=== PATIENT | male | born 1940 | race Caucasian/White ===

== ENCOUNTER 2021-07-01 14:53 | Inpatient (IN) | payer MEDICARE ==
[~2021-07-01] VITALS: Ht 172.7 cm; Wt 92.1 kg
[2021-07-01] MEDS ORDERED: Z GUARD REMEDY PASTE 57 GM TUBE TOP PRN (20:00)
[2021-07-01 21:05] VITALS: BP 147/71
[2021-07-01] MEDS ORDERED: MULT-594 PO (22:03)
[2021-07-01] MEDS ORDERED: CITA40TA11 PO (22:03)
[2021-07-01] MEDS ORDERED: ASPI-869 PO (22:03)
[2021-07-01] MEDS ORDERED: AMIO200T5 PO (22:03)
[2021-07-01] MEDS ORDERED: CARV6.252 PO (22:03)
[2021-07-01] MEDS ORDERED: APIX5TAB PO (22:03)
[2021-07-01] MEDS ORDERED: ATOR80TA PO (22:03)
[2021-07-01] MEDS ORDERED: BISA10SU61 RC (22:04)
[2021-07-01] MEDS ORDERED: PANT40TA49 PO (22:04)
[2021-07-01] MEDS ORDERED: TRAZ-257 PO (22:04)
[2021-07-01] MEDS ORDERED: ACET-2154 PO (22:04)
[2021-07-01] MEDS ORDERED: FURO40TA5 PO (22:04)
[2021-07-01] MEDS ORDERED: SENN-261 PO (22:04)
[2021-07-01] MEDS ORDERED: SACU1TAB PO (22:04)
[2021-07-01] MEDS ORDERED: POLY119P2 PO (22:04)
[2021-07-01] MEDS ORDERED: FERR325T28 PO (22:04)
[2021-07-01] MEDS ORDERED: GABA-532 PO (22:04)
[2021-07-01] MEDS ORDERED: DOCU100C36 PO (22:04)
[2021-07-01] MEDS ORDERED: NITR-104 PO (22:04)
[2021-07-01] MEDS ORDERED: TAMS-3 PO (22:04)
--- NOTE | 2021-07-02 01:31 | NUR ---
Received a 81 yr old male admitted for Acute CVA from [facility]. Patient alert and oriented x4. Patient with expressive aphasia. Speech clear. Needs attended. VSS. Kept comfortable. Skin intact but with some rashes noted on bilateral upper extremities. Fall precautions maintained. Call guthrie within reach. Bed alarm on. Patient has a vanessa catheter draining yellow urine. Hx of HTN, Hyperlipidemia, CVA in the past, CABG, Recurrent UTI, urinary retention. Dr Wylie aware of patient's admission and meds to reconcile. Will monitor patient. Denies any pain nor any discomfort.
[2021-07-02 04:00] VITALS: BP 132/78
--- NOTE | 2021-07-02 06:46 | NUR ---
End of shift notes: Slept well most of the shift. VSS. Needs attended. Kept comfortable. Hathaway catheter draining yellow urine. I & O monitor. No complaints presented during shift.
--- NOTE | 2021-07-02 07:30 | NUR ---
Patient received in bed, alert and oriented, but confused and unable to verbalize needs at this time. Patient is able to follow directions, but expressive aphasia present. On RA with no SOB or difficulties breathing. No acute distress noted. Hathaway draining clear bee urine via gravity. Call light within easy reach. Fall precautions in place. Will continue to monitor.
[2021-07-02 07:32] VITALS: BP 161/70
--- NOTE | 2021-07-02 11:59 | NUR ---
TRISHA NOTE: TRISHA met with patient and Hafsa ([phone]) who expressed that patient has been suffering with depression and made statements of feelings hopeless and not able to live. Hafsa requested for a psychiatry consultation. TRISHA requested a psychiatry consultation from 3rd floor unit nurse. TRISHA also informed Jasmyne Robison and Francisco spring encaser. TRISHA also provided Hafsa with a list of medicare accepting psychiatrist ion their community for aftercare.
--- NOTE | 2021-07-02 12:02 | NUR ---
Social Work Note/PH9 Post Stroke Depression Screening: easement worker met with patient and conducted a PHQ-9 (Post Stroke Depression Screening) in which the patient score of a level of 14 for depression. Patient requires psych consult. TRISHA advised nursing on the third floor and Francisco ed case manager.
--- NOTE | 2021-07-02 12:03 | NUR ---
Social Work Stroke Resources: utility worker met with patient and provided stroke referrals such as: Stroke Family Warmline at (7-262-5-STROKE) and additional information on caring for a stroke survivor ( ). utility worker also educated patient on the signs of Stroke and to immediately call 911. utility worker provided education on the signs of stroke and provided educational packet with information: Dietary food, what stroke is, risks, emotional support, finding support, medical management, and effects of stroke.
[2021-07-02] MEDS ORDERED: MIRALAX 17 GM POWD.PACK PO PRN (13:30)
[2021-07-02] MEDS ORDERED: BISACODYL 10 MG SUPP.RECT RC PRN (13:30)
[2021-07-02] MEDS: DOCUSATE SODIUM 100 MG CAPSULE PO SCH ×2 (14:37→20:31)
[2021-07-02] MEDS: FUROSEMIDE 40 MG TABLET PO SCH (14:38)
[2021-07-02] MEDS: CARVEDILOL 6.25 MG TABLET PO SCH ×2 (14:38→20:31)
[2021-07-02] MEDS: MULTIVITAMINS,THERAPEUTIC TABLET PO SCH (14:38)
[2021-07-02] MEDS: ASPIRIN EC 81 MG TABLET.DR PO SCH (14:38)
[2021-07-02] MEDS: AMIODARONE HCL 200 MG TABLET PO SCH (14:39)
[2021-07-02] MEDS: FERROUS SULFATE 325 MG TABEC PO SCH ×2 (14:39→20:32)
[2021-07-02] MEDS: NITROFURANTOIN/NITROFURAN MAC 100 MG CAPSULE PO SCH ×2 (14:41→20:31)
[2021-07-02] MEDS: TAMSULOSIN HCL 0.4 MG CAP.SR.24H PO SCH ×2 (14:42→20:32)
[2021-07-02] MEDS: GABAPENTIN 300 MG CAPSULE PO SCH ×2 (14:42→18:00)
[2021-07-02] MEDS: APIXABAN 5 MG TABLET PO SCH ×2 (14:43→20:33)
[2021-07-02] MEDS: CITALOPRAM 20 MG TABLET PO SCH (20:30)
[2021-07-02] MEDS: ATORVASTATIN 40 MG TABLET PO SCH (20:31)
[2021-07-02 20:32] VITALS: BP 164/75
[2021-07-02] MEDS: PANTOPRAZOLE SODIUM 40 MG TABLET.DR PO SCH (20:32)
[2021-07-02] MEDS ORDERED: TRAZODONE 100 MG TABLET PO PRN (21:00)
[2021-07-02] MEDS ORDERED: SENNOSIDES 1 TABLET PO PRN (21:00)
--- NOTE | 2021-07-02 23:12 | NUR ---
Received pt sleeping comfortably. Aroused easily to verbal stimuli. Alert and oriented x3, with expressive aphasia. No acute distress noted. Denies pain/ discomfort. Due meds given as ordered, given 2 at a time, tolerated well. No aspiration noted. Aspiration precaution observed. Hathaway catheter draining well with bee colored urine. Safety measures maintained. Bed alarm on. Call light within reach. Will continue to monitor.
--- NOTE | 2021-07-03 00:52 | NUR ---
Vital signs at midnight, BP 163/72 HR 53. No SOB, CP, or dizziness. Paged Dr. Mora x2 around 1210 through exchange, no response. Exchanged called back to follow up at 1254, still no response. Awaiting call back. Pt sleeping comfortably at this time. Will continue to monitor.
--- NOTE | 2021-07-03 01:23 | NUR ---
Dr. Reid called back and stated he will put in order.
[2021-07-03 04:25] VITALS: BP 144/64
[2021-07-03 07:05] LABS: HEMATOCRIT 32.4 % (36.7-47.1); MEAN CORPUSCULAR HEMOGLOBIN 30.1 uug (23.8-33.4); PLATELET COUNT (AUTO) 328 K/uL (152-348)
[2021-07-03 07:25] LABS: BILIRUBIN,TOTAL 0.8 mg/dL (0.2-1.0); MAGNESIUM 1.8 mg/dL (1.8-2.4); PHOSPHOROUS 3.2 mg/dL (2.5-4.9); TOTAL PROTEIN, SERUM 7.9 g/dL (6.4-8.2)
[2021-07-03 08:00] VITALS: BP 149/65
[2021-07-03] MEDS ORDERED: POTASSIUM CHLORIDE 20 MEQ TAB.PRT.SR PO ONE (08:15)
[2021-07-03] MEDS: ASPIRIN EC 81 MG TABLET.DR PO SCH (08:29)
[2021-07-03] MEDS: NITROFURANTOIN/NITROFURAN MAC 100 MG CAPSULE PO SCH ×2 (08:29→20:41)
[2021-07-03] MEDS: DOCUSATE SODIUM 100 MG CAPSULE PO SCH ×2 (08:30→16:12)
[2021-07-03] MEDS: FERROUS SULFATE 325 MG TABEC PO SCH ×2 (08:30→16:12)
[2021-07-03] MEDS: TAMSULOSIN HCL 0.4 MG CAP.SR.24H PO SCH ×2 (08:30→20:41)
[2021-07-03] MEDS: FUROSEMIDE 40 MG TABLET PO SCH (08:30)
[2021-07-03] MEDS: GABAPENTIN 300 MG CAPSULE PO SCH ×3 (08:30→16:12)
[2021-07-03] MEDS: MULTIVITAMINS,THERAPEUTIC TABLET PO SCH (08:30)
--- NOTE | 2021-07-03 08:30 | NUR ---
Received patient in bed, alert and oriented x 3, cooperative upon assessment. Patient attempted to get out of bed and reminded him not to do that without any assistance and patient verbalized understanding. Bed alarm is functioning well. All needs met promptly. All due meds given per MD order. Patient BP is 140/60 in room air saturating at 95%
[2021-07-03] MEDS: CARVEDILOL 6.25 MG TABLET PO SCH ×2 (08:33→18:10)
[2021-07-03] MEDS: AMIODARONE HCL 200 MG TABLET PO SCH (08:33)
[2021-07-03] MEDS: APIXABAN 5 MG TABLET PO SCH ×2 (08:34→16:11)
[2021-07-03] MEDS ORDERED: ENTRESTO PO SCH (09:00)
[2021-07-03] MEDS ORDERED: [UNRECOGNIZED DRUG - OTHER] PO SCH (09:00)
--- NOTE | 2021-07-03 15:27 | NUR ---
BP 173/83 notified Giovanny Short NP and awaiting for response
[2021-07-03] MEDS ORDERED: hydrALAZINE HCL 20 MG/1 ML VIAL IV PRN (15:45)
[2021-07-03 15:48] VITALS: BP 173/83
[2021-07-03 20:10] VITALS: BP 121/57
[2021-07-03] MEDS: ATORVASTATIN 40 MG TABLET PO SCH (20:41)
[2021-07-03] MEDS: PANTOPRAZOLE SODIUM 40 MG TABLET.DR PO SCH (20:41)
[2021-07-03] MEDS: CITALOPRAM 20 MG TABLET PO SCH (20:41)
--- NOTE | 2021-07-03 21:30 | NUR ---
Received pt resting in bed. AAO x3. No acute distress noted. Denies pain/ discomfort. Due meds given as ordered. Tolerated well. No aspiration noted. At 2100, pt noted accidentally dislodged his vanessa catheter. Bleeding and clots noted coming out from penis. Notified Giovanny Short POULTRY KILLER with order for CBC and BMP, hold Eliquis for tomorrow depending on lab result, and to reinsert vanessa catheter. Will carry out order. Safety measures maintained. Call light within reach. Will continue to monitor.
--- NOTE | 2021-07-03 22:00 | NUR ---
Tolerated vanessa catheter insertion with hematuria still noted. No resistance noted on insertion. Continue to monitor.
[2021-07-04 04:10] VITALS: BP 128/87
[2021-07-04 06:58] LABS: HEMATOCRIT 31.1 % (36.7-47.1); MEAN CORPUSCULAR HEMOGLOBIN 30.1 uug (23.8-33.4); MEAN CORPUSCULAR VOLUME 90.1 fL (73.0-96.2); PLATELET COUNT (AUTO) 300 K/uL (152-348)
[2021-07-04 08:00] VITALS: BP 157/68
[2021-07-04 08:02] LABS: CARBON DIOXIDE 24 mmol/L (21-32); CHLORIDE 104 mmol/L (98-107); CREATININE 1.6 mg/dL (0.6-1.3); GLUCOSE 100 mg/dL (74-106); POTASSIUM 3.2 mmol/L (3.5-5.1); UREA NITROGEN, BLOOD 20 mg/dL (7-18)
[2021-07-04] MEDS: GABAPENTIN 300 MG CAPSULE PO SCH ×3 (08:16→17:15)
[2021-07-04] MEDS: ASPIRIN EC 81 MG TABLET.DR PO SCH (08:16)
[2021-07-04] MEDS: MULTIVITAMINS,THERAPEUTIC TABLET PO SCH (08:17)
[2021-07-04] MEDS: NITROFURANTOIN/NITROFURAN MAC 100 MG CAPSULE PO SCH ×2 (08:17→21:07)
[2021-07-04] MEDS: CARVEDILOL 6.25 MG TABLET PO SCH ×2 (08:17→17:15)
[2021-07-04] MEDS: FUROSEMIDE 40 MG TABLET PO SCH (08:17)
[2021-07-04] MEDS: TAMSULOSIN HCL 0.4 MG CAP.SR.24H PO SCH ×2 (08:17→21:08)
[2021-07-04] MEDS: FERROUS SULFATE 325 MG TABEC PO SCH ×2 (08:17→17:15)
[2021-07-04] MEDS: AMIODARONE HCL 200 MG TABLET PO SCH (08:18)
[2021-07-04] MEDS: DOCUSATE SODIUM 100 MG CAPSULE PO SCH ×2 (08:20→17:14)
[2021-07-04] MEDS ORDERED: POTASSIUM CHLORIDE 20 MEQ TAB.PRT.SR PO ONE (09:00)
[2021-07-04] MEDS: APIXABAN 5 MG TABLET PO SCH ×2 (09:09→17:14)
--- NOTE | 2021-07-04 09:15 | NUR ---
inform Giovanny Short regarding patient still have a little bit of blood on his vanessa catheter. Per Giovanny Short , ok to give eliquis 5mg.
[2021-07-04 16:00] VITALS: BP 161/70
--- NOTE | 2021-07-04 16:34 | NUR ---
INDIVIDUALIZED PLAN OF CARE
[2021-07-04 18:57] LABS: *BILIRUBIN,URIN NEGATIVE (NEGATIVE); *BLOOD, URINE 1+ (NEGATIVE); *COLOR,URINE YELLOW (YELLOW); *KETONES,URINE TRACE (NEGATIVE); *UROBILINOGEN,URINE 0.2 E.U./dl (NORMAL); LEUKOCYTE ESTERASE ,URINE NEGATIVE (NEGATIVE); NITRITE, URINE NEGATIVE (NEGATIVE); UGLUCOSE NEGATIVE (NEGATIVE)
[2021-07-04 19:04] LABS: *CREATININE,URINE 151.6 mg/dL (30-125)
[2021-07-04 19:07] LABS: *CLARITY,URINE SLIGHTLY HAZY (CLEAR); BACTERIA,URINE FEW /HPF (NONE SEEN); SQUAMOUS EPITHELIAL CELL,UR FEW /HPF (NONE SEEN)
[2021-07-04 19:08] LABS: CALCIUM OXALATE CRYSTALS,UR FEW /HPF (NONE SEEN)
[2021-07-04 20:14] VITALS: BP 104/59
[2021-07-04] MEDS: PANTOPRAZOLE SODIUM 40 MG TABLET.DR PO SCH (21:07)
[2021-07-04] MEDS: ATORVASTATIN 40 MG TABLET PO SCH (21:08)
[2021-07-04] MEDS: CITALOPRAM 20 MG TABLET PO SCH (21:08)
[2021-07-05 04:42] VITALS: BP 142/56
[2021-07-05 06:19] LABS: HEMATOCRIT 29.5 % (36.7-47.1); MEAN CORPUSCULAR HEMOGLOBIN 29.3 uug (23.8-33.4); MEAN CORPUSCULAR VOLUME 91.2 fL (73.0-96.2); PLATELET COUNT (AUTO) 273 K/uL (152-348)
--- NOTE | 2021-07-05 06:29 | NUR ---
Received pt on bed with no respiratory distress noted on initial rounds. Slept throughout the night, easily arousable for care. Pt still noted with pinkish colored urine on Hathaway bag. Denies pain and discomfort at this time. All due medications given and tolerated well. All needs anticipated and attended. Call light placed within reach. Frequent visual checks done. Will endorse for continuity of care.
[2021-07-05 06:53] LABS: BILIRUBIN,TOTAL 0.6 mg/dL (0.2-1.0); CREATININE 1.3 mg/dL (0.6-1.3); MAGNESIUM 1.9 mg/dL (1.8-2.4); PHOSPHOROUS 3.8 mg/dL (2.5-4.9); POTASSIUM 3.3 mmol/L (3.5-5.1); TOTAL PROTEIN, SERUM 7.3 g/dL (6.4-8.2)
[2021-07-05 07:32] VITALS: BP 147/71
[2021-07-05] MEDS ORDERED: POTASSIUM CHLORIDE 20 MEQ TAB.PRT.SR PO ONE (09:15)
[2021-07-05] MEDS: ASPIRIN EC 81 MG TABLET.DR PO SCH (09:48)
[2021-07-05] MEDS: DOCUSATE SODIUM 100 MG CAPSULE PO SCH ×2 (09:48→17:25)
[2021-07-05] MEDS: MULTIVITAMINS,THERAPEUTIC TABLET PO SCH (09:48)
[2021-07-05] MEDS: GABAPENTIN 300 MG CAPSULE PO SCH ×3 (09:48→17:25)
[2021-07-05] MEDS: NITROFURANTOIN/NITROFURAN MAC 100 MG CAPSULE PO SCH ×2 (09:48→20:14)
[2021-07-05] MEDS: TAMSULOSIN HCL 0.4 MG CAP.SR.24H PO SCH ×2 (09:49→20:14)
[2021-07-05] MEDS: FERROUS SULFATE 325 MG TABEC PO SCH ×2 (09:49→17:26)
[2021-07-05] MEDS: FUROSEMIDE 40 MG TABLET PO SCH (09:49)
[2021-07-05] MEDS: CARVEDILOL 6.25 MG TABLET PO SCH ×2 (09:50→17:27)
[2021-07-05] MEDS: APIXABAN 5 MG TABLET PO SCH ×2 (09:50→17:28)
[2021-07-05] MEDS: AMIODARONE HCL 200 MG TABLET PO SCH (09:51)
[2021-07-05 15:54] VITALS: BP 139/61
[2021-07-05] MEDS: GLUCERNA SHAKE 237 ML CAN PO SCH (17:27)
[2021-07-05] MEDS: ATORVASTATIN 40 MG TABLET PO SCH (20:14)
[2021-07-05] MEDS: PANTOPRAZOLE SODIUM 40 MG TABLET.DR PO SCH (20:14)
[2021-07-05] MEDS: CITALOPRAM 20 MG TABLET PO SCH (20:14)
[2021-07-05 20:15] VITALS: BP 135/55
[2021-07-05] MEDS: ACETAMINOPHEN 325 MG TABLET PO PRN (20:16)
--- NOTE | 2021-07-05 23:11 | NUR ---
Received pt sleeping comfortably. Aroused easily to verbal stimuli. Alert and oriented x3. No acute distress noted. Denies pain/ discomfort. Temp 99.6F, cooling measures and Tylenol given. Due meds given as ordered, given with apple sauce 1-2 tabs at a time, tolerated well. No aspiration noted. Aspiration precaution observed. Hathaway catheter in place, draining with bee colored urine. No hematuria, clots, or sediments noted at this time. Safety measures maintained. Call light within reach. Will continue to monitor.
[2021-07-06 04:25] VITALS: BP 131/62
[2021-07-06 08:03] VITALS: BP 164/67
[2021-07-06] MEDS: NITROFURANTOIN/NITROFURAN MAC 100 MG CAPSULE PO SCH ×2 (10:06→20:15)
[2021-07-06] MEDS: APIXABAN 5 MG TABLET PO SCH ×2 (10:07→17:23)
[2021-07-06] MEDS: CARVEDILOL 6.25 MG TABLET PO SCH ×2 (10:07→17:21)
[2021-07-06] MEDS: FUROSEMIDE 40 MG TABLET PO SCH (10:07)
[2021-07-06] MEDS: TAMSULOSIN HCL 0.4 MG CAP.SR.24H PO SCH ×2 (10:07→20:15)
[2021-07-06] MEDS: DOCUSATE SODIUM 100 MG CAPSULE PO SCH ×2 (10:07→17:22)
[2021-07-06] MEDS: MULTIVITAMINS,THERAPEUTIC TABLET PO SCH (10:07)
[2021-07-06] MEDS: AMIODARONE HCL 200 MG TABLET PO SCH (10:08)
[2021-07-06] MEDS: FERROUS SULFATE 325 MG TABEC PO SCH ×2 (10:08→17:21)
[2021-07-06] MEDS: ASPIRIN EC 81 MG TABLET.DR PO SCH (10:08)
[2021-07-06] MEDS: GABAPENTIN 300 MG CAPSULE PO SCH ×3 (10:08→17:22)
[2021-07-06] MEDS: GLUCERNA SHAKE 237 ML CAN PO SCH (10:09)
[2021-07-06 16:00] VITALS: BP 137/54
[2021-07-06 20:15] VITALS: BP 149/60
[2021-07-06] MEDS: ATORVASTATIN 40 MG TABLET PO SCH (20:15)
[2021-07-06] MEDS: PANTOPRAZOLE SODIUM 40 MG TABLET.DR PO SCH (20:15)
[2021-07-06] MEDS: CITALOPRAM 20 MG TABLET PO SCH (20:18)
--- NOTE | 2021-07-06 22:44 | NUR ---
Received pt on bed with no respiratory distress noted. Hathaway catheter secured with new StatLock. No hematuria noted on urine bag at this time. Denies pain and discomfort. All due medications given and tolerated well. All needs attended. Call light placed within reach. Will continue to monitor.
[2021-07-07 04:35] VITALS: BP 147/69
--- NOTE | 2021-07-07 05:46 | NUR ---
Pt slept throughout the night. On room air with no respiratory distress noted. FC remains patent and draining with yellowish urine. Denies pain and discomfort at this time. All needs attended. Call light placed within reach. Frequent visual checks done. Will endorse for continuity of care.
--- NOTE | 2021-07-07 07:15 | NUR ---
Received patient asleep in bed. On room air. No signs of acute distress. With Hathaway catheter draining clear, yellow urine. Bed alarm on. Call light within reach. Will continue to monitor.
[2021-07-07 08:06] VITALS: BP 154/77
[2021-07-07] MEDS: NITROFURANTOIN/NITROFURAN MAC 100 MG CAPSULE PO SCH ×2 (08:08→20:56)
[2021-07-07] MEDS: TAMSULOSIN HCL 0.4 MG CAP.SR.24H PO SCH ×2 (08:08→20:56)
[2021-07-07] MEDS: ASPIRIN EC 81 MG TABLET.DR PO SCH (08:08)
[2021-07-07] MEDS: DOCUSATE SODIUM 100 MG CAPSULE PO SCH ×2 (08:08→16:34)
[2021-07-07] MEDS: GABAPENTIN 300 MG CAPSULE PO SCH ×3 (08:08→16:34)
[2021-07-07] MEDS: FERROUS SULFATE 325 MG TABEC PO SCH ×2 (08:08→16:34)
[2021-07-07] MEDS: FUROSEMIDE 40 MG TABLET PO SCH (08:08)
[2021-07-07] MEDS: MULTIVITAMINS,THERAPEUTIC TABLET PO SCH (08:08)
[2021-07-07] MEDS: GLUCERNA SHAKE 237 ML CAN PO SCH (08:09)
[2021-07-07] MEDS: CARVEDILOL 6.25 MG TABLET PO SCH ×2 (08:10→16:45)
[2021-07-07] MEDS: AMIODARONE HCL 200 MG TABLET PO SCH (08:10)
[2021-07-07] MEDS: AMLODIPINE 5 MG TABLET PO SCH (08:11)
[2021-07-07] MEDS: APIXABAN 5 MG TABLET PO SCH ×2 (08:12→16:45)
--- NOTE | 2021-07-07 14:03 | NUR ---
INTERDISCIPLINARY TEAM CONFERENCE
[2021-07-07 15:41] VITALS: BP 127/61
--- NOTE | 2021-07-07 18:44 | NUR ---
Patient resting in bed. AOx3-4 with expressive aphasia. On room air. No signs of acute distress. Hathaway catheter draining yellow, clear urine. Compliant with medications and care. Call light within reach. Bed alarm on. Needs anticipated and met. Safety measures provided. Will endorse to incoming shift for continuity of care.
[2021-07-07 20:25] VITALS: BP 99/47
[2021-07-07] MEDS: PANTOPRAZOLE SODIUM 40 MG TABLET.DR PO SCH (20:56)
[2021-07-07] MEDS: ATORVASTATIN 40 MG TABLET PO SCH (20:56)
[2021-07-07] MEDS: CITALOPRAM 20 MG TABLET PO SCH (20:56)
[2021-07-08 04:38] VITALS: BP 123/63
--- NOTE | 2021-07-08 05:41 | NUR ---
Received pt on bed, on room air with no respiratory distress noted on initial rounds. Slept throughout the night, easily arousable for care. Hathaway catheter draining well with clear yellowish urine, no hematuria noted. Denies pain and discomfort. All due medications given and tolerated well. All needs attended. Call light placed within reach. Frequent visual checks done. Will endorse to next shift for continuity of care.
[2021-07-08 08:00] VITALS: BP 124/67
[2021-07-08] MEDS: FUROSEMIDE 40 MG TABLET PO SCH (09:00)
[2021-07-08] MEDS: AMLODIPINE 5 MG TABLET PO SCH (09:00)
[2021-07-08] MEDS: CARVEDILOL 6.25 MG TABLET PO SCH ×2 (09:00→17:11)
[2021-07-08] MEDS: MULTIVITAMINS,THERAPEUTIC TABLET PO SCH (09:17)
[2021-07-08] MEDS: GABAPENTIN 300 MG CAPSULE PO SCH ×3 (09:17→17:10)
[2021-07-08] MEDS: TAMSULOSIN HCL 0.4 MG CAP.SR.24H PO SCH ×2 (09:17→20:06)
[2021-07-08] MEDS: DOCUSATE SODIUM 100 MG CAPSULE PO SCH ×2 (09:18→17:10)
[2021-07-08] MEDS: FERROUS SULFATE 325 MG TABEC PO SCH ×2 (09:18→17:10)
[2021-07-08] MEDS: ASPIRIN EC 81 MG TABLET.DR PO SCH (09:18)
[2021-07-08] MEDS: NITROFURANTOIN/NITROFURAN MAC 100 MG CAPSULE PO SCH ×2 (09:18→20:05)
[2021-07-08] MEDS: APIXABAN 5 MG TABLET PO SCH ×2 (09:20→17:12)
[2021-07-08] MEDS: GLUCERNA SHAKE 237 ML CAN PO SCH (09:23)
[2021-07-08] MEDS: AMIODARONE HCL 200 MG TABLET PO SCH (09:26)
[2021-07-08 16:03] VITALS: BP 132/65
[2021-07-08] MEDS: ATORVASTATIN 40 MG TABLET PO SCH (20:05)
[2021-07-08] MEDS: PANTOPRAZOLE SODIUM 40 MG TABLET.DR PO SCH (20:06)
[2021-07-08] MEDS: CITALOPRAM 20 MG TABLET PO SCH (20:06)
--- NOTE | 2021-07-08 21:05 | NUR ---
Received pt sleeping comfortably. Aroused easily to verbal stimuli. AAO x3. No acute distress noted. Denies pain/ discomfort. Denies SI. Due meds given as ordered with apple sauce 2 tabs at a time, tolerated well. No aspiration noted. Aspiration precaution maintained. Hathaway catheter draining well with clear yellow colored urine, no hematuria noted. Safety measures maintained. Call light and personal items within reach. Will continue to monitor.
[2021-07-08 21:17] VITALS: BP 100/37
[2021-07-09 04:56] VITALS: BP 134/64
[2021-07-09 08:00] VITALS: BP 157/61
[2021-07-09] MEDS: ACETAMINOPHEN 325 MG TABLET PO PRN (08:07)
[2021-07-09] MEDS: DOCUSATE SODIUM 100 MG CAPSULE PO SCH ×2 (08:08→16:36)
[2021-07-09] MEDS: ASPIRIN EC 81 MG TABLET.DR PO SCH (08:08)
[2021-07-09] MEDS: APIXABAN 5 MG TABLET PO SCH ×2 (08:09→16:37)
[2021-07-09] MEDS: AMLODIPINE 5 MG TABLET PO SCH (08:10)
[2021-07-09] MEDS: FERROUS SULFATE 325 MG TABEC PO SCH ×2 (08:10→16:36)
[2021-07-09] MEDS: GABAPENTIN 300 MG CAPSULE PO SCH ×3 (08:10→16:36)
[2021-07-09] MEDS: TAMSULOSIN HCL 0.4 MG CAP.SR.24H PO SCH ×2 (08:10→20:59)
[2021-07-09] MEDS: MULTIVITAMINS,THERAPEUTIC TABLET PO SCH (08:10)
[2021-07-09] MEDS: FUROSEMIDE 40 MG TABLET PO SCH (08:13)
[2021-07-09] MEDS: CARVEDILOL 6.25 MG TABLET PO SCH ×2 (08:14→16:37)
[2021-07-09] MEDS: AMIODARONE HCL 200 MG TABLET PO SCH (08:15)
[2021-07-09] MEDS: GLUCERNA SHAKE 237 ML CAN PO SCH (08:19)
--- NOTE | 2021-07-09 08:20 | NUR ---
patient is alert and oriented x 2-3 , eating his breakfast, no s/s of distress, cooperative upon assessment. Rechecked his heart rate. HR is 56 . Hold Carvedilol and Amiodarone and will continue to monitor. BP: 151/61
[2021-07-09 16:00] VITALS: BP 126/54
--- NOTE | 2021-07-09 17:46 | NUR ---
Notified Dr. Joel Rivas regarding patient's heart rate and ordered to continue monitor.
[2021-07-09 20:26] VITALS: BP 122/57
[2021-07-09] MEDS: CITALOPRAM 20 MG TABLET PO SCH (20:58)
[2021-07-09] MEDS: PANTOPRAZOLE SODIUM 40 MG TABLET.DR PO SCH (20:58)
[2021-07-09] MEDS: ATORVASTATIN 40 MG TABLET PO SCH (20:59)
--- NOTE | 2021-07-09 21:21 | NUR ---
Received pt sleeping comfortably. Aroused easily to verbal stimuli. AAO x3. No acute distress noted. Denies pain/ discomfort. Denies SI. More alert and conversational tonight. Due meds given as ordered with apple sauce 2 tabs at a time, tolerated well. No aspiration noted. Aspiration precaution maintained. Hathaway catheter draining well with clear yellow colored urine, no hematuria noted. Safety measures maintained. Call light and personal items within reach. Will continue to monitor.
[2021-07-10 04:55] VITALS: BP 131/51
[2021-07-10 08:00] VITALS: BP 150/64
[2021-07-10] MEDS: FUROSEMIDE 40 MG TABLET PO SCH (09:39)
[2021-07-10] MEDS: TAMSULOSIN HCL 0.4 MG CAP.SR.24H PO SCH ×2 (09:39→20:32)
[2021-07-10] MEDS: AMIODARONE HCL 200 MG TABLET PO SCH (09:39)
[2021-07-10] MEDS: DOCUSATE SODIUM 100 MG CAPSULE PO SCH ×2 (09:39→16:49)
[2021-07-10] MEDS: GABAPENTIN 300 MG CAPSULE PO SCH ×3 (09:40→16:47)
[2021-07-10] MEDS: AMLODIPINE 5 MG TABLET PO SCH (09:40)
[2021-07-10] MEDS: CARVEDILOL 6.25 MG TABLET PO SCH ×2 (09:40→16:48)
[2021-07-10] MEDS: ASPIRIN EC 81 MG TABLET.DR PO SCH (09:40)
[2021-07-10] MEDS: GLUCERNA SHAKE 237 ML CAN PO SCH (09:40)
[2021-07-10] MEDS: MULTIVITAMINS,THERAPEUTIC TABLET PO SCH (09:40)
[2021-07-10] MEDS: FERROUS SULFATE 325 MG TABEC PO SCH ×2 (09:40→16:51)
[2021-07-10] MEDS: APIXABAN 5 MG TABLET PO SCH ×2 (09:42→16:50)
[2021-07-10 16:00] VITALS: BP 151/57
--- NOTE | 2021-07-10 20:16 | NUR ---
Awake alert and oriented x2-3 More conversant tonight. Was able to make needs known. Tolerated po meds without any difficulty. Able to take it with apple sauce. Denies any pain nor any discomfort. No acute distress noted. Fall precautions maintained. Siderails up for safety. Hathaway catheter intact draining yellow urine. No hematuria noted. Will monitor patient. Kept comfortable. VSS.
[2021-07-10] MEDS: PANTOPRAZOLE SODIUM 40 MG TABLET.DR PO SCH (20:32)
[2021-07-10] MEDS: CITALOPRAM 20 MG TABLET PO SCH (20:32)
[2021-07-10] MEDS: ATORVASTATIN 40 MG TABLET PO SCH (20:32)
[2021-07-10 20:54] VITALS: BP 127/56
[2021-07-11 04:57] VITALS: BP 140/55
[2021-07-11 07:35] VITALS: BP 140/53
[2021-07-11] MEDS: ASPIRIN EC 81 MG TABLET.DR PO SCH (08:26)
[2021-07-11] MEDS: TAMSULOSIN HCL 0.4 MG CAP.SR.24H PO SCH ×2 (08:26→20:18)
[2021-07-11] MEDS: MULTIVITAMINS,THERAPEUTIC TABLET PO SCH (08:26)
[2021-07-11] MEDS: FUROSEMIDE 40 MG TABLET PO SCH (08:26)
[2021-07-11] MEDS: GABAPENTIN 300 MG CAPSULE PO SCH ×3 (08:26→16:43)
[2021-07-11] MEDS: DOCUSATE SODIUM 100 MG CAPSULE PO SCH ×2 (08:26→16:42)
[2021-07-11] MEDS: FERROUS SULFATE 325 MG TABEC PO SCH ×2 (08:26→16:42)
[2021-07-11] MEDS: AMLODIPINE 5 MG TABLET PO SCH (08:27)
[2021-07-11] MEDS: GLUCERNA SHAKE 237 ML CAN PO SCH (08:34)
[2021-07-11] MEDS: APIXABAN 5 MG TABLET PO SCH ×2 (08:45→16:43)
[2021-07-11] MEDS: AMIODARONE HCL 200 MG TABLET PO SCH (09:00)
[2021-07-11] MEDS: CARVEDILOL 6.25 MG TABLET PO SCH ×2 (09:00→16:44)
--- NOTE | 2021-07-11 09:00 | NUR ---
PATIENT IS AWAKE ALERT WITH EXPRESSIVE APHASIA BUT STILL ABLE TO MAKE SIMPLE NEEDS KNOWN DUE MEDICATIONS GIVEN AND TOLERATED WELL DENIES DISCOMFORTS AT THIS TIME WILL CONTINUE ON PT/OT THERAPIES ORDERED.
[2021-07-11 16:00] VITALS: BP 136/61
--- NOTE | 2021-07-11 17:00 | NUR ---
PER THE PHYSICAL THERAPIST PATIENT REFUSED HIS THERAPY SESSIONS THIS AFTERNOON STATED WAS TOO TIRED AFTER THE AM SESSIONS BUT DENIES DISCOMFORTS CALL LIGHTS AND PERSONAL BELONGINGS ARE WITHIN EASY REACH WILL OBSERVE.
[2021-07-11 19:40] VITALS: BP 127/49
[2021-07-11] MEDS: ATORVASTATIN 40 MG TABLET PO SCH (20:18)
[2021-07-11] MEDS: PANTOPRAZOLE SODIUM 40 MG TABLET.DR PO SCH (20:18)
[2021-07-11] MEDS: CITALOPRAM 20 MG TABLET PO SCH (20:18)
--- NOTE | 2021-07-12 00:23 | NUR ---
Received patient in bed asleep, but easily aroused with calling of name. Patient was pleasant and cooperative with care. Received due medications, tolerated well. Fall and safety precautions observed. Will continue to monitor patient.
[2021-07-12 04:40] VITALS: BP 147/60
--- NOTE | 2021-07-12 07:30 | NUR ---
RECEIVED IN BED ASLEEP BUT IS EASILY AROUSABLE ON ROUNDS WHEN TOUCHED OR NAME IS CALLED OUT ON ROOM AIR WITH NO S/S OF SHORTNESS OF BREATH AT THIS TIME STATON CATHETER REMAINS INTACT WITH ADEQUATE URINE DRAINAGE CALL LIGHTS AND HIS PERSONAL BELONGINGS ARE WITHIN EASY REACH AT THIS TIME WILL CONTINUE TO OBSERVE AND CONTINUE WITH REHAB PROGRAM OUTLINED FOR HIM.
[2021-07-12 07:49] VITALS: BP 155/77
[2021-07-12] MEDS: CARVEDILOL 6.25 MG TABLET PO SCH ×2 (08:17→16:55)
[2021-07-12] MEDS: AMIODARONE HCL 200 MG TABLET PO SCH (08:17)
[2021-07-12] MEDS: GABAPENTIN 300 MG CAPSULE PO SCH ×3 (08:18→16:42)
[2021-07-12] MEDS: AMLODIPINE 5 MG TABLET PO SCH (08:18)
[2021-07-12] MEDS: ASPIRIN EC 81 MG TABLET.DR PO SCH (08:18)
[2021-07-12] MEDS: TAMSULOSIN HCL 0.4 MG CAP.SR.24H PO SCH ×2 (08:18→20:20)
[2021-07-12] MEDS: FUROSEMIDE 40 MG TABLET PO SCH (08:18)
[2021-07-12] MEDS: FERROUS SULFATE 325 MG TABEC PO SCH ×2 (08:19→16:42)
[2021-07-12] MEDS: MULTIVITAMINS,THERAPEUTIC TABLET PO SCH (08:19)
[2021-07-12] MEDS: DOCUSATE SODIUM 100 MG CAPSULE PO SCH ×2 (08:19→16:42)
[2021-07-12] MEDS: APIXABAN 5 MG TABLET PO SCH ×2 (08:20→16:42)
[2021-07-12] MEDS: GLUCERNA SHAKE 237 ML CAN PO SCH (08:20)
--- NOTE | 2021-07-12 14:45 | NUR ---
DR LUU HERE NOTIFIED HIM THAT PATIENT IS ON COREG AND AMIODARONE AND HIS HEART RATE HAS BEEN SOMMER LOW 49 STATED [place] WILL REVIEW AND WILL PROVIDE PARAMETERS AND OR WILL CHANGE THE MEDICATIONS AWAITING FOR ORDERS.
--- NOTE | 2021-07-12 15:30 | NUR ---
DR LUU STATED TO CONTINUE TO HOLD THE COREG AND THE AMIODARONE IF THE HEART RATE CONTINUES TO BE LOW WILL DECIDE BY TOMORROW WHAT S THE NEXT PLAN .
[2021-07-12 16:00] VITALS: BP 130/55
--- NOTE | 2021-07-12 17:15 | NUR ---
ECHO COMPLETED ORDERED AWAITING FOR FINAL RESULTS
[2021-07-12 20:00] VITALS: BP 137/57
[2021-07-12] MEDS: ATORVASTATIN 40 MG TABLET PO SCH (20:20)
[2021-07-12] MEDS: CITALOPRAM 20 MG TABLET PO SCH (20:20)
[2021-07-12] MEDS: PANTOPRAZOLE SODIUM 40 MG TABLET.DR PO SCH (20:20)
--- NOTE | 2021-07-12 20:56 | NUR ---
Received pt resting in bed. AAO x3. No acute distress noted. Denies pain/ discomfort. Denies SI. Due meds given as ordered, with apple sauce. Safety measures maintained. Call light and personal items within reach. Will continue to monitor.
[2021-07-13 04:00] VITALS: BP 109/30
--- NOTE | 2021-07-13 07:15 | NUR ---
DR LUU HERE SEEN PATIENT ALSO REVIEWED THE ECHO AND EKG RESULTS AND HE STATED WILL CALL THE SOCK KNITTER TO SEE PATIENT FOR CONSULT AND NOTED PATIENT REMAINS ALERT AND COOPERATIVE WITH EXPRESSIVE APHASIA ABLE TO RELAY SIMPLE NEEDS NO SOB AT THIS TIME CALL LIGHTS AND PERSONAL BELONGINGS ARE WITHIN EASY REACH STATON CATH TO GRAVITY DRAINAGE WITH NO HEMATURIA WILL CONTINE TO OBSERVE.
[2021-07-13 08:00] VITALS: BP 106/55
--- NOTE | 2021-07-13 08:09 | NUR ---
PATIENT SEEN AND EXAMINED BY DR BO PATTERN DRUM MAKER WITH NEW ORDERS AND NOTED.
[2021-07-13] MEDS: CARVEDILOL 3.125 MG TABLET PO SCH ×2 (08:23→17:10)
[2021-07-13] MEDS: MULTIVITAMINS,THERAPEUTIC TABLET PO SCH (08:57)
[2021-07-13] MEDS: FERROUS SULFATE 325 MG TABEC PO SCH ×2 (08:57→16:41)
[2021-07-13] MEDS: GABAPENTIN 300 MG CAPSULE PO SCH ×3 (08:57→16:40)
[2021-07-13] MEDS: ASPIRIN EC 81 MG TABLET.DR PO SCH (08:57)
[2021-07-13] MEDS: DOCUSATE SODIUM 100 MG CAPSULE PO SCH ×2 (08:57→16:40)
[2021-07-13] MEDS: FUROSEMIDE 40 MG TABLET PO SCH (08:58)
[2021-07-13] MEDS: TAMSULOSIN HCL 0.4 MG CAP.SR.24H PO SCH ×2 (08:58→20:21)
[2021-07-13] MEDS: AMIODARONE HCL 200 MG TABLET PO SCH (08:58)
[2021-07-13] MEDS: AMLODIPINE 5 MG TABLET PO SCH (09:00)
[2021-07-13] MEDS ORDERED: CARVEDILOL 6.25 MG TABLET PO SCH (09:00)
[2021-07-13] MEDS: VALSARTAN 80 MG TABLET PO SCH (09:00)
[2021-07-13] MEDS: GLUCERNA SHAKE 237 ML CAN PO SCH (09:11)
[2021-07-13] MEDS: APIXABAN 5 MG TABLET PO SCH ×2 (09:52→16:45)
--- NOTE | 2021-07-13 14:38 | NUR ---
CONTINUE WITH ACUTE REHAB PROGRAMS ORDERED WITH GOOD ENDURANCE AT THIS TIME NO S/S OF DISCOMFORTS AND NOT IN DISTRESS.CALL LIGHTS AND PERSONAL BELONGINGS ARE WITHIN EASY REACH WILL CONTINUE TO OBSERVE.
[2021-07-13 16:00] VITALS: BP 127/49
--- NOTE | 2021-07-13 18:00 | NUR ---
DUE MEDS GIVEN INCLUDING ELIQUIS COREG WAS HELD DUE TO HEART RATE OF 51 PER PARAMETERS.NOT IN DISTRESS WILL CONTINUE TO OBSERVE.
[2021-07-13 20:00] VITALS: BP 123/52
[2021-07-13] MEDS: PANTOPRAZOLE SODIUM 40 MG TABLET.DR PO SCH (20:21)
[2021-07-13] MEDS: CITALOPRAM 20 MG TABLET PO SCH (20:21)
[2021-07-13] MEDS: ATORVASTATIN 40 MG TABLET PO SCH (20:21)
--- NOTE | 2021-07-13 23:05 | NUR ---
Resting in bed upon rounds. AAOx4 Needs attended. Hathaway catheter intact draining yellow urine. No bleeding noted from penis nor in urine. All due meds given without any difficulty. Kept comfortable. Fall precautions maintained. Siderails up for safety. VSS. Will monitor patient. Denies any pain nor any discomfort.
[2021-07-14 04:00] VITALS: BP 145/55
[2021-07-14 05:49] LABS: HEMATOCRIT 27.7 % (36.7-47.1); MEAN CORPUSCULAR HEMOGLOBIN 29.8 uug (23.8-33.4); MEAN CORPUSCULAR VOLUME 90.3 fL (73.0-96.2); PLATELET COUNT (AUTO) 189 K/uL (152-348)
--- NOTE | 2021-07-14 05:56 | NUR ---
Patient's vanessa catheter intact with bloody urine noted and also the penile area is also with blood secondary to trauma. Patient's catheter irrigated with saline to see if there are blood clots, but none. Vanessa catheter draining moderate amount of bloody urine noted. Denies any pain nor any discomfort. Will relay message to the incoming dayshift nurse.
[2021-07-14 06:09] LABS: BILIRUBIN,TOTAL 0.5 mg/dL (0.2-1.0); CREATININE 1.2 mg/dL (0.6-1.3); POTASSIUM 3.9 mmol/L (3.5-5.1); TOTAL PROTEIN, SERUM 6.8 g/dL (6.4-8.2)
[2021-07-14 08:00] VITALS: BP 140/68
[2021-07-14] MEDS: CARVEDILOL 3.125 MG TABLET PO SCH ×2 (08:00→18:00)
[2021-07-14] MEDS: GABAPENTIN 300 MG CAPSULE PO SCH ×3 (08:32→17:25)
[2021-07-14] MEDS: MULTIVITAMINS,THERAPEUTIC TABLET PO SCH (08:32)
[2021-07-14] MEDS: FERROUS SULFATE 325 MG TABEC PO SCH ×2 (08:35→17:25)
[2021-07-14] MEDS: DOCUSATE SODIUM 100 MG CAPSULE PO SCH ×2 (08:35→17:25)
[2021-07-14] MEDS: FUROSEMIDE 40 MG TABLET PO SCH (08:35)
[2021-07-14] MEDS: TAMSULOSIN HCL 0.4 MG CAP.SR.24H PO SCH ×2 (08:35→20:14)
[2021-07-14] MEDS: VALSARTAN 80 MG TABLET PO SCH (08:36)
[2021-07-14] MEDS: APIXABAN 5 MG TABLET PO SCH ×2 (09:00→17:00)
[2021-07-14] MEDS: AMLODIPINE 5 MG TABLET PO SCH (10:00)
[2021-07-14] MEDS: GLUCERNA SHAKE 237 ML CAN PO SCH (10:43)
--- NOTE | 2021-07-14 10:43 | NUR ---
Dr. Marcum in the unit, informed MD regarding bloody/reddish urine draining from Hathaway catheter and per MD hold Eliquis until bleeding stops and OK to administer aspirin.
[2021-07-14] MEDS: AMIODARONE HCL 200 MG TABLET PO SCH (11:00)
[2021-07-14] MEDS: ASPIRIN EC 81 MG TABLET.DR PO SCH (11:04)
--- NOTE | 2021-07-14 14:48 | NUR ---
INTERDISCIPLINARY TEAM CONFERENCE
[2021-07-14 16:30] VITALS: BP 136/58
[2021-07-14 20:08] VITALS: BP 112/44
[2021-07-14] MEDS: PANTOPRAZOLE SODIUM 40 MG TABLET.DR PO SCH (20:14)
[2021-07-14] MEDS: CITALOPRAM 20 MG TABLET PO SCH (20:14)
[2021-07-14] MEDS: ATORVASTATIN 40 MG TABLET PO SCH (20:14)
--- NOTE | 2021-07-14 20:51 | NUR ---
Awake alert and oriented x3-4 . Patient with expressive aphasia but was able to make needs known. VSS. All due meds given without difficulty. Hathaway catheter intact draining bee colored urine. No bleeding noted on catheter site/penis and also no hematuria noted. Kept comfortable. Will monitor patient. Fall precautions maintained. Siderails up for safety. Call guthrie within reach.
[2021-07-15 04:00] VITALS: BP 115/50
--- NOTE | 2021-07-15 06:34 | NUR ---
Hathaway catheter still draining bloody urine. Irrigated with saline, no blood clots noted. Will monitor patient.
[2021-07-15 07:50] VITALS: BP 142/59
[2021-07-15] MEDS: CARVEDILOL 3.125 MG TABLET PO SCH ×2 (08:00→17:06)
[2021-07-15] MEDS: AMIODARONE HCL 200 MG TABLET PO SCH (08:59)
[2021-07-15] MEDS: APIXABAN 5 MG TABLET PO SCH ×2 (09:00→16:54)
[2021-07-15] MEDS: FERROUS SULFATE 325 MG TABEC PO SCH ×2 (09:00→16:54)
[2021-07-15] MEDS: MULTIVITAMINS,THERAPEUTIC TABLET PO SCH (09:01)
[2021-07-15] MEDS: TAMSULOSIN HCL 0.4 MG CAP.SR.24H PO SCH ×2 (09:01→20:28)
[2021-07-15] MEDS: DOCUSATE SODIUM 100 MG CAPSULE PO SCH ×2 (09:01→16:54)
[2021-07-15] MEDS: GABAPENTIN 300 MG CAPSULE PO SCH ×3 (09:01→16:54)
[2021-07-15] MEDS: FUROSEMIDE 40 MG TABLET PO SCH (09:02)
[2021-07-15] MEDS: ASPIRIN EC 81 MG TABLET.DR PO SCH (09:02)
[2021-07-15] MEDS: GLUCERNA SHAKE 237 ML CAN PO SCH (09:03)
[2021-07-15] MEDS: VALSARTAN 80 MG TABLET PO SCH (09:04)
--- NOTE | 2021-07-15 09:15 | NUR ---
Hathaway catheter noted to have slight hematuria. No blood clots noted. No signs of acute distress or trauma to insertion site. Will continue to monitor.
[2021-07-15 15:13] VITALS: BP 112/49
[2021-07-15] MEDS: ATORVASTATIN 40 MG TABLET PO SCH (20:28)
[2021-07-15] MEDS: PANTOPRAZOLE SODIUM 40 MG TABLET.DR PO SCH (20:28)
[2021-07-15] MEDS: CITALOPRAM 20 MG TABLET PO SCH (20:28)
[2021-07-15 20:30] VITALS: BP 116/60
--- NOTE | 2021-07-15 22:03 | NUR ---
Resting in bed upon rounds. AAOx3-4 with expressive aphasia. All due meds given without difficulty. No acute distress noted. VSS. Hathaway catheter intact still draining bloody urine. No clots noted. Will monitor patient. Patient for discharge in am. Will have to see a urologist as outpatient.
[2021-07-16 04:25] VITALS: BP 135/55
[2021-07-16 07:41] VITALS: BP 151/61
[2021-07-16] MEDS: CARVEDILOL 3.125 MG TABLET PO SCH ×2 (08:00→17:08)
--- NOTE | 2021-07-16 08:00 | NUR ---
Patient is noted with bloody urine output, denies pain, no clots identified. Eliquis not given. HR is 48, Hold amiodarone and Coreg as ordered. Will continue to monitor patient.
[2021-07-16] MEDS: APIXABAN 5 MG TABLET PO SCH ×2 (08:22→16:44)
[2021-07-16] MEDS: DOCUSATE SODIUM 100 MG CAPSULE PO SCH ×2 (08:23→16:42)
[2021-07-16] MEDS: GABAPENTIN 300 MG CAPSULE PO SCH ×3 (08:23→16:43)
[2021-07-16] MEDS: ASPIRIN EC 81 MG TABLET.DR PO SCH (08:23)
[2021-07-16] MEDS: VALSARTAN 80 MG TABLET PO SCH (08:23)
[2021-07-16] MEDS: TAMSULOSIN HCL 0.4 MG CAP.SR.24H PO SCH (08:23)
[2021-07-16] MEDS: FUROSEMIDE 40 MG TABLET PO SCH (08:23)
[2021-07-16] MEDS: AMIODARONE HCL 200 MG TABLET PO SCH (08:24)
[2021-07-16] MEDS: FERROUS SULFATE 325 MG TABEC PO SCH ×2 (08:24→16:42)
[2021-07-16] MEDS: MULTIVITAMINS,THERAPEUTIC TABLET PO SCH (08:26)
[2021-07-16 15:08] VITALS: BP 129/51
[2021-07-16] MEDS ORDERED: CARV3.122 PO (16:13)
[2021-07-16 17:08] VITALS: BP 129/51
--- NOTE | 2021-07-16 17:52 | NUR ---
Discharged patient via private car with the son, AL LENNON. Skin intact. Denies pain. Ate dinner well. Belongings list signed and with the patient. No distress identified. Patient left with FC as ordered, draining well, intact. Discharge instructions given and signed by the son.
== END 2021-07-16 17:45 | disposition home health service (06) | DRG 56 ==
PROVIDERS: ADMIT Physical Medicine & Rehabilitation; ATTEND Physical Medicine & Rehabilitation
DX: I69.354 Hemiplegia and hemiparesis following cerebral infarction affecting left non-dominant side (principal); I50.23 Acute on chronic systolic (congestive) heart failure; I48.20 Chronic atrial fibrillation, unspecified; N17.9 Acute kidney failure, unspecified; R45.851 Suicidal ideations; T83.83XA Hemorrhage due to genitourinary prosthetic devices, implants and grafts, initial encounter; I69.320 Aphasia following cerebral infarction; I10 Essential (primary) hypertension; E78.5 Hyperlipidemia, unspecified; E11.42 Type 2 diabetes mellitus with diabetic polyneuropathy; D50.9 Iron deficiency anemia, unspecified; I11.0 Hypertensive heart disease with heart failure; I48.91 Unspecified atrial fibrillation; N40.0 Benign prostatic hyperplasia without lower urinary tract symptoms; Z95.1 Presence of aortocoronary bypass graft; Z79.01 Long term (current) use of anticoagulants; Z87.440 Personal history of urinary (tract) infections; E87.6 Hypokalemia; I25.10 Atherosclerotic heart disease of native coronary artery without angina pectoris; I25.5 Ischemic cardiomyopathy; I27.20 Pulmonary hypertension, unspecified; Y84.6 Urinary catheterization as the cause of abnormal reaction of the patient, or of later complication, without mention of misadventure at the time of the procedure; Y92.230 Patient room in hospital as the place of occurrence of the external cause; Z79.899 Other long term (current) drug therapy; R47.1 Dysarthria and anarthria; Z79.82 Long term (current) use of aspirin
CPT/HCPCS: 36415; 71045; 76770; 83735; 84100; 84156; 84300; 85025; 93005; 93307; 97161; A4217; A4663; J0360